=== PATIENT | female | born 1955 | race American Indian/Alaskan Native ===

== ENCOUNTER 2018-01-20 06:02 | Day surgery (SDC) | payer BC ==
[~2018-01-20 06:02] MED LIST: MARCAINE 0.5% INFILTRATI ONE; NACL 0.9% IR ONE; VANCOMYCIN PHARMACY TO DOSE IV SCH; VANCOMYCIN/0.45 NS 1 GM/250 ML 1 GM/250 ML BAG IV SCH; VANCOMYCIN/NS 1 GM/250 ML 1 GM/250 ML BAG IV SCH
[2018-01-20] MEDS ORDERED: NACL BACTERIOSTATIC INFILTRATI ONE (06:21)
[2018-01-20] MEDS ORDERED: VERSED IV NR (07:00)
[2018-01-20] MEDS ORDERED: LACTATED RINGERS 1,000 ML IV SCH (07:00)
[2018-01-20] MEDS ORDERED: MARCAINE 0.5% 30 ML INFILTRATI ONE (07:12)
--- NOTE | 2018-01-20 07:16 | Anesthesia Consultation ---
Anesthesia Consult and Med Hx - Airway Anesthetic Teeth Evaluation: Good ROM Head & Neck: Adequate Mallampati Class: Class II Intubation Access Assessment: Probably Good - Pulmonary Exam CTA: Yes - Cardiac Exam Cardiac Exam: RRR - Pre-Operative Health Status ASA Pre-Surgery Classification: ASA2 Proposed Anesthetic Plan: General - Pre-Anesthesia Comment Pre-Anesthesia Comments: 62y F with h/o osteopenia taking Ca and Vit D; otherwise healthy. No prior anes complications. - Pulmonary Hx Respiratory Symptoms: No - Cardiovascular System Hx Coronary Artery Disease: No - Central Nervous System Hx Seizures: No CVA: No Hx Psychiatric Problems: No - Endocrine Hx Liver Disease: No - Other Systems Hx Alcohol Use: No Hx Substance Use: No Hx Cancer: No
--- NOTE | 2018-01-20 07:17 | Anesthesia Day of Surgery ---
Anesthesia Day of Surgery - Day of Surgery Patient Examined: Yes Patient H&P Reviewed: Yes Patient is NPO: Yes Beta Blockers: No Cardiac Clearance: Yes Pulmonary Clearance: Yes John's Test: N/A
[2018-01-20] MEDS ORDERED: VERSED ONE (07:38)
[2018-01-20] MEDS ORDERED: XYLOCAINE CARDIAC IV ONE (07:38)
[2018-01-20] MEDS ORDERED: DIPRIVAN 10 MG/ML IV ONE (07:38)
[2018-01-20] MEDS ORDERED: DILAUDID ONE (07:39)
[2018-01-20] MEDS ORDERED: MARCAINE 0.5% INFILTRATI ONE (07:59)
[2018-01-20] MEDS ORDERED: NACL 0.9% IR ONE (07:59)
[2018-01-20] MEDS ORDERED: XYLOCAINE 2%/EPI 1:100,000 INFILTRATI ONE (07:59)
[2018-01-20] MEDS ORDERED: XYLOCAINE 2%/ EPI 1:200,000 INFILTRATI ONE (08:12)
[2018-01-20 08:57] VITALS: BP 101/68
--- NOTE | 2018-01-20 09:43 | Operative Report ---
PREOPERATIVE DIAGNOSIS: Subcutaneous nodule of posterior neck. POSTOPERATIVE DIAGNOSIS: Subcutaneous nodule of posterior neck. Rule out sebaceous cyst, pending final pathology. PROCEDURE: Excision and packing of aforementioned subcutaneous nodule. A specimen was sent fresh to pathology for aerobic and anaerobic cultures as well as permanent pathology. Sebum was noted during the excision. SURGEON: Rusty Moon MD. ANESTHESIA: 0.5% Marcaine with IV sedation. COMPLICATIONS: No complications. PROCEDURE IN DETAIL: The patient was taken to the operating room and placed in prone position, prepped and draped in the usual sterile fashion. The palpable nodule had previously been outlined with a marking pencil. A 0.5% Marcaine with 2% Xylocaine with epi 50:50 solution was infiltrated over the area to be incised. A 15 blade was used to incise skin and subcutaneous tissue. Double skin hooks were used to tract the skin. Needle tip electrocautery as well as sharp and blunt dissection were used to remove the encapsulated nodule in its entirety. Sebum was noted during the dissection. As previously mentioned, specimen was sent fresh to pathology for cultures as well as permanent pathology. The cavity was then irrigated copiously and dried. Checked for hemostasis and noted to be dry. The cavity was then packed with quarter inch iodoform gauze. A 2 x 2 and a Tegaderm pressure dressing were applied. The patient tolerated the procedure well and left OR in stable condition. JOB# [id number] HARSH/EMILIO
--- NOTE | 2018-01-20 11:13 | Post Anesthesia Evaluation ---
- Post Anesthesia Evaluation Patient Participated: Yes Airway Patent: Yes Stable Respiratory Function: Yes Nausea/Vomiting: No Temp > 96.8F: Yes Pain Manageable: Yes Adequeate Hydration: Yes
== END 2018-01-20 09:47 | disposition home or self-care (01) ==
LOC: OR 06:02
PROVIDERS: ATTEND Surgery
DX: L72.0 Epidermal cyst (principal)
CPT/HCPCS: 11421; 87076; 87116; 87186; 88304; J1170; J2001; J2250; J2704; J3370; J7120; 88305

== ENCOUNTER → 2018-01-22 | Emergency (ER) | payer BC ==
[2018-01-22 16:42] VITALS: BP 134/85
== END ==
LOC: ED 16:28
DX: Z48.01 Encounter for change or removal of surgical wound dressing (principal); Z53.21 Procedure and treatment not carried out due to patient leaving prior to being seen by health care provider

== ENCOUNTER 2021-06-07 14:40 | Outpatient (CLI) | payer BC ==
--- NOTE | 2021-06-07 16:47 | Ultrasound Report ---
ULTRASOUND PELVIS INDICATION: N95.0. Postmenopausal bleeding. TECHNIQUE: Transabdominal and Transvaginal. Duplex Color Doppler used: Yes. COMPARISON: None available FINDINGS: Uterus: Present. Size: 4.0 x 1.6 x 3.3 cm. Endometrial complex: Normal measuring 0.2 cm. Mass lesions: None. Additional findings: None. Right Ovary: Size: 2.2 x 1.1 x 1.3 cm Blood flow: Normal. Cyst or mass: None. Left Ovary: Size: 1.8 x 0.6 x 1.6 cm Blood flow: Normal. Cyst or mass: None. Urinary Bladder: Normal. Free Fluid: None. Additional Findings: None. IMPRESSION: 1. No significant sonographic abnormality of the pelvis. Signer Name: Negro Patterson MD Signed: 06/07/2021 4:43 PM Workstation Name: [id number]
== END 2021-06-07 14:41 | disposition home or self-care (01) ==
LOC: US 14:40
PROVIDERS: ATTEND Obstetrics & Gynecology Gynecology
DX: N95.0 Postmenopausal bleeding (principal)
CPT/HCPCS: 76830; 76856